=== PATIENT | female | born 1990 ===

== ENCOUNTER 2022-04-29 21:55 | Inpatient (IN) ==
[~2022-04-29] VITALS: Ht 149.9 cm; Wt 79.3 kg
[2022-04-29 22:23] VITALS: BP 132/87
[2022-04-29] MEDS ORDERED: PRENTAB9 PO (22:24)
[2022-04-29] MEDS ORDERED: LACTATED RINGER'S 1000 ML IV STA (22:43)
[2022-04-29] MEDS ORDERED: LIDOCAINE 1% MDV 20ML VIAL INFIL PRN (22:45)
[2022-04-29] MEDS ORDERED: OXYTOCIN DRIP 30 UNITS in IV 1 EA IV SCH (22:45)
[2022-04-29] MEDS ORDERED: METHYLERGONOVINE MALEATE 0.2 MG/ML VIAL (J2210) IM PRN (22:45)
[2022-04-29] MEDS ORDERED: TRANEXAMIC ACID INJection 1,000 MG in NS 100 ML IV PRN (22:45)
[2022-04-29] MEDS ORDERED: CARBOPROST TROMETHAMINE 250 MCG/ML AMP IM PRN (22:45)
[2022-04-29] MEDS ORDERED: LR 1,000 ML IV SCH (22:45)
[2022-04-29] MEDS ORDERED: OXYTOCIN INJ 10 UNITS/ML VIAL (J2590) IV PRN (22:45)
[2022-04-29] MEDS ORDERED: OXYTOCIN INJ 10 UNITS/ML VIAL (J2590) IM PRN (22:45)
[2022-04-29] MEDS ORDERED: OXYTOCIN DRIP 30 UNITS in IV 1 EA IV PRN ×6 (22:45)
[2022-04-29 23:10] LABS: HEMATOCRIT 32.3 % (36.0-47.0); HEMOGLOBIN 10.2 g/dl (12.0-15.5); MEAN CORPUSCULAR HEMOGLOBIN 23.1 pg (27.0-33.0); MEAN CORPUSCULAR HGB CONC 31.6 g/dl (32.0-36.5); MEAN CORPUSCULAR VOLUME 73.2 fl (80.0-96.0); PLATELET COUNT, AUTOMATED 317 10^3/uL (150-450); RED BLOOD COUNT 4.41 10^6/uL (4.00-5.40); WHITE BLOOD COUNT 10.6 10^3/uL (4.0-10.0)
[2022-04-29] MEDS: LR 1,000 ML IV SCH (23:50)
[2022-04-29 23:52] VITALS: BP 137/97
[2022-04-30] VITALS (33 sets, daily range): BP systolic 105–155; BP diastolic 55–103
[2022-04-30] MEDS ORDERED: UNRESOLVED CLARIFICATION ENTRY XX SCH (00:01)
[2022-04-30] MEDS ORDERED: ePHEDrine SULFATE 25 MG/5 ML(5MG/ML) SYRINGE IVP PRN (00:05)
[2022-04-30] MEDS ORDERED: LR 500 ML IV PRN (00:05)
[2022-04-30] MEDS ORDERED: FENTANYL/ROPIVACAINE/NACL BAG 100 ML EPIDURAL SCH ×2 (00:05)
[2022-04-30] MEDS ORDERED: diphenhydrAMINE 50MG/ML VIAL (J1200) IV PRN (00:05)
[2022-04-30] MEDS ORDERED: ONDANSETRON 4MG 2ML VIAL IV PRN (00:05)
[2022-04-30] MEDS ORDERED: EPIDURAL/PCA KEYS XX PRN (00:05)
[2022-04-30] MEDS ORDERED: NALOXONE INJ 0.4MG/1ML VIAL (J2310 PER 1MG) IV PRN (00:05)
[2022-04-30] MEDS ORDERED: FENTANYL 2MCG/ML ROPIVACAINE 0.2% IN 0.9% NACL 100ML IVBAG As Ordered ONE (00:20)
[2022-04-30] MEDS: LR 1,000 ML IV SCH (06:45)
[2022-04-30] MEDS ORDERED: MOM 30ML SUSPENSION UDC PO PRN (07:20)
[2022-04-30] MEDS ORDERED: RHOGAM 300 MCG (1500 IU) INJ (J2790) IM SCH (07:20)
[2022-04-30] MEDS ORDERED: DIBUCAINE 1% OINTMENT 30GM TOP PRN (07:20)
[2022-04-30] MEDS ORDERED: METHYLERGONOVINE MALEATE 0.2 MG TAB PO PRN (07:20)
[2022-04-30] MEDS ORDERED: DOCUSATE SODIUM 100MG CAPSULE PO PRN (07:20)
[2022-04-30 07:44] LABS: CORD GAS ABE V -4.4; CORD GAS HCO3 V 20.4 MEQ/L; CORD GAS O2 SAT V 65.4 %; CORD GAS PCO2 V 37.2 mmHg; CORD GAS PH V 7.357 UNITS; CORD GAS PO2 V 28.1 mmHg; CORD GAS TCO2 V 21.5 MEQ/L
[2022-04-30 07:44] LABS: CORD GAS ABE A -5.5; CORD GAS HCO3 A 20.9 MEQ/L; CORD GAS O2 SAT A 63.9 %; CORD GAS PCO2 A 43.7 mmHg; CORD GAS PH A 7.297 UNITS; CORD GAS PO2 A 29.1 mmHg; CORD GAS SBC A 19.1 MEQ/L; CORD GAS TCO2 A 22.2 MEQ/L
[2022-04-30] MEDS ORDERED: OXYTOCIN DRIP 30 UNITS in IV 1 EA IV SCH (08:00)
[2022-04-30] MEDS: IBUPROFEN 800 MG TAB PO PRN ×2 (10:38→19:04)
[2022-04-30] MEDS: PRENATAL VITAMINS CHEWABLE TABLET PO SCH (10:38)
[2022-04-30] MEDS: ACETAMINOPHEN 500 MG TAB PO PRN (15:07)
[2022-05-01] MEDS: IBUPROFEN 800 MG TAB PO PRN ×2 (05:20→14:13)
[2022-05-01 06:13] VITALS: BP 93/57
[2022-05-01] MEDS: PRENATAL VITAMINS CHEWABLE TABLET PO SCH (08:50)
[2022-05-01] MEDS: ACETAMINOPHEN 500 MG TAB PO PRN (14:12)
[2022-05-02] MEDS ORDERED: MEASLES,MUMPS,RUBELLA VACCINE INJ (MMR-II) (90707) SC.IMMUN ONE (09:00)
== END 2022-05-01 15:20 | disposition home or self-care (01) | DRG 807 ==
LOC: M LDO 21:55 → M LDI 22:35 → M OBS 04-30 11:34
PROVIDERS: ADMIT Obstetrics & Gynecology; ATTEND Obstetrics & Gynecology
PROC: 10E0XZZ Delivery of Products of Conception, External Approach (ICD-10-PCS; principal; 2022-04-30)
PROC: 10907ZC Drainage of Amniotic Fluid, Therapeutic from Products of Conception, Via Natural or Artificial Opening (ICD-10-PCS; 2022-04-30)
DX: O48.0 Post-term pregnancy (principal); Z37.0 Single live birth; Z3A.40 40 weeks gestation of pregnancy; O99.02 Anemia complicating childbirth; D64.9 Anemia, unspecified; O69.81X0 Labor and delivery complicated by cord around neck, without compression, not applicable or unspecified; O75.82 Onset (spontaneous) of labor after 37 completed weeks of gestation but before 39 completed weeks gestation, with delivery by (planned) cesarean section